=== PATIENT | female | born 1940 | race Caucasian/White ===

== ENCOUNTER → 2016-12-13 | Outpatient (CLI) | payer OTHER ==
[~2016-12-13] MED LIST: CYCL0.05 OP; FEXO1TAB46 PO; FLM4 PO; FLUT0.0529 INH; GLC500 PO; GLUC10007 PO; ICAPS; INSDGI SC; INSU100I2 SQ; LSX20 PO; Losartan Potassium PO; MULT-506 PO; NITR0.4S UT; RIVA1TAB4 PO; TNR25 PO
[2016-12-13 18:31] LABS: BASO % 0.3 %; BASO ABS # 0.03 K/uL (0-0.2); COMPLETE YES; EOS % 1.1 %; HEMATOCRIT 39.2 % (37-47); IG% 0.3 %; LYMPH % 24.1 %; LYMPH ABS # 2.69 K/uL (1.2-3.4); MEAN CELL VOLUME 89.3 fL (80-100); MEAN CORPUSCULAR HEMOGLOBIN 29.8 pg (25-34); MEAN CORPUSCULAR HGB CONC 33.4 g/dl (32-36); MEAN PLATELET VOLUME 12.2 fL (7.4-10.4); MONO % 12.3 %; NEUT % 61.9 %; PLATELET COUNT 249 K/uL (130-400); RED BLOOD COUNT 4.39 M/uL (4.2-5.4); WHITE BLOOD COUNT 11.15 K/uL (4.8-10.8)
[2016-12-13 18:39] LABS: ALT/SGPT 64 U/L (12-78); BLOOD UREA NITROGEN 22 mg/dl (7-18); CALCIUM 9.7 mg/dl (8.5-10.1); CARBON DIOXIDE 24 mmol/L (21-32); CHLORIDE 103 mmol/L (98-107); CHOLESTEROL 126 mg/dl (0-200); CREATININE 0.91 mg/dl (0.60-1.20); GLUCOSE 207 mg/dl (70-99); SODIUM 139 mmol/L (136-145); TRIGLYCERIDES 156 mg/dl (0-150); VERY LOW DENSITY LIPOPROT CALC 31 mg/dl
[2016-12-13 18:42] LABS: ALB/GLOB RATIO 0.7 (0.9-2); ALKALINE PHOSPHATASE 125 U/L (45-117); AST/SGOT 78 U/L (15-37); CHOLESTEROL/HDL RATIO 2.8; HDL CHOLESTEROL 45 mg/dl; LDL CHOLESTEROL CALCULATED 50 mg/dl
[2016-12-13 18:52] LABS: ESTIMATED AVERAGE GLUCOSE 212 mg/dl; HA1C FLAG Normal (Normal)
== END | disposition home or self-care (01) ==
LOC: C.LABMFLN 12:08
PROVIDERS: ATTEND Family Medicine
DX: I50.9 Heart failure, unspecified (principal); E11.65 Type 2 diabetes mellitus with hyperglycemia; E78.5 Hyperlipidemia, unspecified

== ENCOUNTER → 2017-05-21 | Outpatient (CLI) | payer OTHER ==
[2017-05-21 13:24] LABS: ESTIMATED AVERAGE GLUCOSE 194 mg/dl; HA1C FLAG Normal (Normal)
[2017-05-21 14:40] LABS: RATIO 28.3 mcg/mg (0-30.0)
== END | disposition home or self-care (01) ==
LOC: C.LABMFLN 08:00
PROVIDERS: ATTEND Physician Assistant
DX: E11.65 Type 2 diabetes mellitus with hyperglycemia (principal)

== ENCOUNTER → 2017-08-13 | Outpatient (CLI) | payer OTHER ==
[2017-08-13 13:33] LABS: ESTIMATED AVERAGE GLUCOSE 171 mg/dl; HA1C FLAG Normal (Normal)
== END | disposition home or self-care (01) ==
LOC: C.LABMFLN 09:51
PROVIDERS: ATTEND Physician Assistant
DX: E11.65 Type 2 diabetes mellitus with hyperglycemia (principal)

== ENCOUNTER → 2017-11-21 | Outpatient (CLI) | payer OTHER ==
[2017-11-21 17:59] LABS: ALB/GLOB RATIO 0.7 (0.9-2); AST/SGOT 46 U/L (15-37); BLOOD UREA NITROGEN 21 mg/dl (7-18); BUN/CREATININE RATIO 23.1 (10-20); CALCIUM 9.4 mg/dl (8.5-10.1); CARBON DIOXIDE 28 mmol/L (21-32); CHLORIDE 102 mmol/L (98-107); CHOLESTEROL 118 mg/dl (0-200); CREATININE 0.89 mg/dl (0.60-1.20); GLUCOSE 131 mg/dl (70-99); POTASSIUM 3.7 mmol/L (3.5-5.1); SODIUM 138 mmol/L (136-145)
[2017-11-21 18:05] LABS: ALKALINE PHOSPHATASE 121 U/L (45-117); ALT/SGPT 49 U/L (12-78); CHOLESTEROL/HDL RATIO 2.5; HDL CHOLESTEROL 47 mg/dl; LDL CHOLESTEROL CALCULATED 36 mg/dl; TRIGLYCERIDES 174 mg/dl (0-150); VERY LOW DENSITY LIPOPROT CALC 35 mg/dl
[2017-11-22 07:02] LABS: ESTIMATED AVERAGE GLUCOSE 171 mg/dl; HA1C FLAG Normal (Normal)
== END | disposition home or self-care (01) ==
LOC: C.LABMFLN 11:31
PROVIDERS: ATTEND Family Medicine
DX: E11.65 Type 2 diabetes mellitus with hyperglycemia (principal)